=== PATIENT | male | born 2000 | race Two or more races ===

== ENCOUNTER 2022-09-06 14:24 | Emergency (ER) | payer SELFPAY ==
[~2022-09-06] VITALS: Ht 170.2 cm; Wt 75.3 kg
[2022-09-06 14:50] VITALS: BP 122/66
[2022-09-06] MEDS ORDERED: CEPH-510 PO (15:13)
== END 2022-09-06 15:27 | disposition home or self-care (01) ==
LOC: ER 14:24
DX: K60.2 Anal fissure, unspecified (principal)

== ENCOUNTER 2025-06-08 21:48 | Emergency (ER) | payer MEDICAID, OTHER ==
[~2025-06-08] VITALS: Ht 167.6 cm; Wt 88.5 kg
[~2025-06-08 21:48] MED LIST: CEPH-510 PO
[2025-06-08 21:51] VITALS: BP 132/97; PULSE 89; RESP 16; TEMP 97.4; O2SAT 99
--- NOTE | 2025-06-08 23:38 | ED.PDOC ---
GI ASSESSMENT HPI Comments Pt presents with cc of bright red rectal bleeding tonight approximately 2029. Pt reports similar symptoms 3 years ago and being told at that time he "popped a vessel." Pt denies any rectal pain, diarrhea. Denies fever, chills, nausea or vomiting. Chief Complaint: GI Bleed Time Seen by MD: 22:02 Primary Care Provider: DENIES Reviewed Notes: Nurses Notes, Medications, Allergies Allergies: Coded Allergies: NO KNOWN ALLERGIES (Unverified , 09/06/22) Home Meds Active Scripts Hydrocortisone Acetate (Anusol-Hc) 25 Mg Sup, 1 SUPP NH BID for 7 Days, #14 SUPP Prov:JONE PATEL [employer]PER 06/08/25 Cephalexin ( Keflex 500) 500 Mg Cap, 1 CAP PO QID, #28 CAP Prov:VLAD GONZALEZ PA 09/06/22 Information Source: Patient Mode of Arrival: Ambulatory Past Medical History PAST MEDICAL HISTORY: Denies Surgical History: Denies all surgeries Family History Family History: Reviewed,noncontributory to illness Social History Smoker: Non-Smoker Alcohol: Denies ETOH Use Drugs: Denies Drug Use Lives In: Home All Other Systems: Reviewed and Negative (see hpi) Physical Exam General Appearance: No Apparent Distress, Normal HEENT: Pharynx Normal Neck: Full Range of Motion, Non-Tender Respiratory: Lungs Clear, No Respiratory Distress, Normal Breath Sounds Cardiovascular: No Murmur, Normal Peripheral Pulses, Regular Rate/Rhythm Breast Exam: Deferred Gastrointestinal: No Organomegaly, Non Tender, No Pulsatile Mass, Normal Bowel Sounds, Soft Genitalia: Deferred Pelvic: Deferred Rectal: Hemorrhoids (Internal on digital exam) Extremities: Normal range of motion, Non-tender Musculoskeletal : Apperance: Normal Neurologic: Alert, caddy packer II-XII nml as Tested, No Motor Deficits, Normal Affect, Normal Mood, No Sensory Deficits Cerebellar Function: Normal Reflexes: Normal Skin: Dry, Normal Color, Warm Lymphatic: No Adenopathy Was a procedure done? Was a procedure done?: No GI differential Dx Differential Diagnosis: Constipation, Diverticular disease, Gastritis/PUD, Gastroenteritis, GI hemorrhage, Mass X-Ray, Labs, Meds, VS Vital Signs Date Time Temp Pulse Resp B/P (MAP) Pulse Ox O2 Delivery O2 Flow Rate FiO2 06/08/25 21:51 97.4 89 16 132/97 99 97.4 X-Ray, Labs, Meds, VS Comment Script trial of hydrocortisone rectal. Advised to avoid constipation increase daily fiber avoid heavy lifting use a weight belt. Follow up with your PCP in 2-3 days as necessary ER return precautions given patient indicates understanding agrees with discharge plan of care. Time of 1ST Reevaluation: 22:02 Reevaluation 1ST: Unchanged Time of 2ND Reevaluation: 23:45 Reevaluation 2ND: Improved Patient Education/Counseling: Diagnosis, Treatment, Need For Follow Up Family Education/Counseling: No Family Present SEPSIS Sepsis Screen Date sepsis recognized/suspect: Jun 08, 2025 Time Sepsis recognized/suspect: 2152 Recent Procedure: No On Antibiotic Therapy: No Respiratory Rate >20: No Heart Rate >90: No Temp<36 C (96.8 F) or >38.3 C: No SBP <90 or MAP <65 mmHG: No New Acute Mental Status Change: No Is the patient on CPAP, BIPAP,: No Vital Signs Date Time Temp Pulse Resp B/P (MAP) Pulse Ox O2 Delivery O2 Flow Rate FiO2 06/08/25 21:51 97.4 89 16 132/97 99 97.4 Departure 1 Departure Time of Disposition: 23:44 Impression: Primary Impression: Internal hemorrhoid, bleeding Disposition: HOME / SELF CARE / HOMELESS Condition: Stable e-Prescriptions Hydrocortisone Acetate (Anusol-Hc) 25 Mg Sup 1 SUPP NH BID for 7 Days, #14 SUPP Prov: JONE PATEL 06/08/25 Discharged With: Relative Critical Care Note Critical Care Time?: No Stability Stability form required: No JONE PATEL Jun 08, 2025 23:38
[2025-06-08] MEDS ORDERED: HYDR25SU21 PR (23:46)
== END 2025-06-08 23:58 | disposition home or self-care (01) ==
LOC: ER 21:48
DX: K64.8 Other hemorrhoids (principal)